=== PATIENT | female | born 1955 | race Caucasian/White ===

== ENCOUNTER → 2016-08-01 | Outpatient (CLI) | payer OTHER ==
[~2016-08-01] MED LIST: LEVOTHYROXINE125 MCG PO; MOTRIN800 MG PO; MULTI-DAY VITA1 EACH PO; ULTRAM50 MG PO; VYTORIN 10/21 TABLET PO
== END | disposition home or self-care (01) ==
LOC: CDC 11:11
DX: Z01.810 Encounter for preprocedural cardiovascular examination (principal); M17.11 Unilateral primary osteoarthritis, right knee; M25.561 Pain in right knee
CPT/HCPCS: 93000

== ENCOUNTER 2016-08-08 06:25 | Inpatient (IN) | payer OTHER ==
[~2016-08-08] VITALS: Ht 144.8 cm; Wt 73.4 kg
[2016-08-08 07:38] VITALS: BP 142/75
[2016-08-08] MEDS ORDERED: IRON325 M1 PO (07:53)
[2016-08-08 08:11] VITALS: BP 142/75
[2016-08-08 15:51] VITALS: BP 120/64
[2016-08-08 19:57] VITALS: BP 106/53
[2016-08-08 23:46] VITALS: BP 127/61
[2016-08-09 03:53] VITALS: BP 137/67
[2016-08-09 05:48] LABS: HEMATOCRIT 41.6 % (36.0-46.0); MCV 86.7 FL (83-99)
[2016-08-09 07:30] VITALS: BP 130/60
[2016-08-09 12:23] VITALS: BP 143/65
[2016-08-09 17:27] VITALS: BP 109/59
[2016-08-10 00:04] VITALS: BP 144/73
[2016-08-10 05:28] LABS: HEMATOCRIT 40.2 % (36.0-46.0); MCV 85.7 FL (83-99)
[2016-08-10 07:14] VITALS: BP 130/62
[2016-08-10] MEDS ORDERED: PRAVASTATIN SOD40 MG PO (09:28)
[2016-08-10] MEDS ORDERED: TYLENOL REGULA325 MG PO (09:29)
[2016-08-10] MEDS ORDERED: OXYCONTIN10 MG PO (09:30)
[2016-08-10] MEDS ORDERED: METHOCARBAMOL750 MG PO (09:30)
[2016-08-10] MEDS ORDERED: CELECOXIB200 MG PO (09:30)
[2016-08-10] MEDS ORDERED: XARELTO10 MG PO (09:30)
[2016-08-10] MEDS ORDERED: LIDOCAINE700 MG TD (09:30)
[2016-08-10] MEDS ORDERED: HYDROMORPHONE HC4 MG PO (09:30)
[2016-08-10 10:55] VITALS: BP 130/68
[2016-08-10 15:54] VITALS: BP 113/71
== END 2016-08-10 16:03 | disposition home or self-care (01) | DRG 470 ==
LOC: 2SOUTH → 3EAST 15:35 → 2SOUTH 16:12 → 3EAST 08-10 16:03
PROVIDERS: Orthopaedic Surgery
PROC: 0SRC0J9 Replacement of Right Knee Joint with Synthetic Substitute, Cemented, Open Approach (ICD-10-PCS; principal; 2016-08-08)
DX: M17.11 Unilateral primary osteoarthritis, right knee (principal); E03.9 Hypothyroidism, unspecified; E78.00 Pure hypercholesterolemia, unspecified
CPT/HCPCS: 85014; 85018; 93971; C1713; J0131; J0690; J1170; J1885; J2250; J2405; J2710; J2795; J3010; J7050; J7120; L1820

== ENCOUNTER 2017-06-17 04:00 | Emergency (ER) | payer BC ==
[~2017-06-17] VITALS: Ht 152.4 cm; Wt 68.2 kg
[~2017-06-17 04:00] MED LIST changes: +CELECOXIB200 MG PO; +HYDROMORPHONE HC4 MG PO; +IRON325 M1 PO; +LIDOCAINE700 MG TD; +METHOCARBAMOL750 MG PO; +OXYCONTIN10 MG PO; +PRAVASTATIN SOD40 MG PO; +TYLENOL REGULA325 MG PO; +XARELTO10 MG PO
[2017-06-17 06:03] LABS: HEMOGLOBIN 14.4 G/DL (11.9-15.5); MCH 29.4 PG (29.0-34.0); MCHC 33.5 G/DL (30.0-36.0); MCV 87.9 FL (83-99); RBC DIS.WIDTH-CV 13.3 % (11.8-14.6); RBC DIS.WIDTH-SD 42.9 % (39-53); RED BLOOD COUNT 4.89 M/uL (3.80-5.20); WHITE BLOOD COUNT 10.6 K/uL (4.1-10.2)
[2017-06-17] MEDS ORDERED: KEFLEX500 MG PO (06:10)
[2017-06-17 06:14] LABS: CHLORIDE 107 mEq/L (99-109); SODIUM 138 mEq/L (136-147)
[2017-06-17 06:16] LABS: GLUCOSE 112 mg/dL (70-99)
[2017-06-17 06:19] LABS: CREATININE 0.7 mg/dL (0.6-1.3); GFR ESTIMATE (CALCULATED) > 59 mL/min/
[2017-06-17 06:20] LABS: UREA NITROGEN (BUN) 14 mg/dL (9-23)
[2017-06-17 06:25] VITALS: BP 126/80
[2017-06-17 07:31] LABS: PLAT.SUFFICIENCY ADEQUATE; PLATELET COUNT 267 K/uL (156-360)
== END 2017-06-17 06:28 | disposition home or self-care (01) ==
LOC: EME 04:00
PROVIDERS: Physician Assistant
DX: L03.115 Cellulitis of right lower limb (principal); E78.5 Hyperlipidemia, unspecified
CPT/HCPCS: 73630; 80048; 85027; 93971; 99281; 99284